=== PATIENT | female | born 1985 ===

== ENCOUNTER 2017-05-24 10:42 | Emergency (ER) | payer OTHER ==
[2017-05-24 10:52] VITALS: PULSE 82
[2017-05-24] MEDS ORDERED: Sodium Chloride 0.9% 1,000 ML IV STA (11:28)
[2017-05-24 12:12] LABS: BASO # 0.1 K/uL (0.0-0.2); BASO % 1.4 % (0.0-2.0); EOS # 0.1 K/uL (0.0-0.7); EOS % 1.1 % (0.0-4.0); HEMOGLOBIN 9.4 g/dL (12.0-16.0); LYMPH # 2.5 K/uL (1.0-4.3); LYMPH % 38.1 % (20.0-40.0); MEAN CORPUSCULAR HEMOGLOBIN 18.1 pg (27.0-31.0); MEAN CORPUSCULAR HGB CONC 30.3 g/dL (33.0-37.0); MEAN PLATELET VOLUME 8.9 fl (7.2-11.7); MONO # 0.6 K/uL (0.0-0.8); MONO % 9.1 % (0.0-10.0); NEUT # 3.2 K/uL (1.8-7.0); NEUT % 50.3 % (50.0-75.0); NRBC % 0.1 % (0.0-0.0); RBC 5.2 Mil/uL (3.80-5.20); RED CELL DISTRIBUTION WIDTH 18.5 % (11.5-14.5); WHITE BLOOD COUNT 6.5 K/uL (4.8-10.8)
[2017-05-24 12:15] LABS: MEAN CELL VOLUME 59.8 fl (81.0-99.0)
[2017-05-24 12:20] LABS: ALBUMIN 4.3 g/dL (3.5-5.0); ALT/SGPT 32 U/L (9-52); AST/SGOT 35 U/L (14-36); BLOOD UREA NITROGEN 4 mg/dl (7-17); CALCIUM 9.1 mg/dL (8.4-10.2); GFR AFRICAN-AMERICAN > 60; GFR NON-AFRICAN AMERICAN > 60
[2017-05-24] MEDS ORDERED: Potassium Chloride 10 mEq ER Tab PO STA (13:18)
[2017-05-24] MEDS ORDERED: Potassium CL 10 MEQ/50 ML 50 ML IVPB ONE (13:18)
--- NOTE | 2017-05-24 13:38 | ED PDOC ---
HPI: General Adult Time Seen by Provider: 05/24/17 11:05 Chief Complaint (Nursing): Weakness/Neurological Deficit Chief Complaint (Provider): Generalized weakness, tired History Per: Patient History/Exam Limitations: no limitations Onset/Duration Of Symptoms: Days Have you had recent travel within the past 21 days to any of the following countries: [place], [place], [place] or [place]?: No Current Symptoms Are (Timing): Still Present Additional Complaint(s): PT reports similar in the past when potassium was low. PT states she is taking potassium in the past. Past Medical History Reviewed: Historical Data, Nursing Documentation, Vital Signs Vital Signs: Last Vital Signs Temp 98.7 F 05/24/17 10:51 Pulse 82 05/24/17 10:51 Resp 17 05/24/17 10:51 BP 111/67 05/24/17 10:51 Pulse Ox 100 05/24/17 14:41 - Medical History Other PMH: hypokalemia - Surgical History Surgical History: No Surg Hx - Family History Family History: States: No Known Family Hx - Living Arrangements Living Arrangements: With Family - Social History Current smoker - smoking cessation education provided: No - Immunization History Hx Tetanus Toxoid Vaccination: No Hx Influenza Vaccination: No Hx Pneumococcal Vaccination: No - Allergies Allergies/Adverse Reactions: Allergies Allergy/AdvReac Type Severity Reaction Status Date / Time No Known Allergies Allergy Verified 08/22/14 16:42 Review of Systems ROS Statement: Except As Marked, All Systems Reviewed And Found Negative Constitutional: Positive for: Weakness. Negative for: Fever, Chills, Malaise, Weight loss Physical Exam - Reviewed Nursing Documentation Reviewed: Yes Vital Signs Reviewed: Yes - Physical Exam Appears: Positive for: Well, Non-toxic, No Acute Distress Head Exam: Positive for: ATRAUMATIC, NORMAL INSPECTION, NORMOCEPHALIC Skin: Positive for: Normal Color, Warm, DRY Eye Exam: Positive for: Normal appearance ENT: Positive for: Normal ENT Inspection Neck: Positive for: Normal, Painless ROM Cardiovascular/Chest: Positive for: Regular Rate, Rhythm Respiratory: Positive for: CNT, Normal Breath Sounds Gastrointestinal/Abdominal: Positive for: Normal Exam, Bowel Sounds, Soft. Negative for: Tenderness Back: Positive for: Normal Inspection Extremity: Positive for: Normal ROM Neurologic/Psych: Positive for: Alert, Oriented - Laboratory Results Result Diagrams: 05/24/17 11:51 05/24/17 11:51 - ECG O2 Sat by Pulse Oximetry: 100 Medical Decision Making Medical Decision Making: Potassium 2.9 - PO and IV potassium ordered. EKG - NSR Case discussed with Dr. Weaver. Disposition - Clinical Impression Clinical Impression: Hypokalemia - Patient ED Disposition Is Patient to be Admitted: No - Disposition Disposition: Routine/Home Disposition Time: 16:23 Condition: GOOD Instructions: Hypokalemia (DC) Forms: [employer] ([place])
[2017-05-24] MEDS ORDERED: Potassium Chloride 20 mEq ER Tab PO ONE (13:49)
[2017-05-24] MEDS ORDERED: Potassium Chloride 20 mEq ER Tab PO STA (14:13)
[2017-05-24 16:56] VITALS: BP 110/69; RESP 18; TEMP 97; O2SAT 99
== END 2017-05-24 16:55 | disposition home or self-care (01) ==
LOC: H.ER 10:42
DX: E87.6 Hypokalemia (principal)
CPT/HCPCS: 80053; 84443; 85025; 96365; 99285; J3480